=== PATIENT | male | born 1985 | race Hispanic/Latino ===

== ENCOUNTER 2017-02-17 08:53 | Emergency (ER) | payer BC ==
--- NOTE | 2017-02-17 09:40 | Cat Scan Report ---
CT scan of head without IV contrast: History: Near syncope. Findings: Ventricles are normal in size and midline in location. No evidence of acute ischemia, hemorrhage or mass. No extra axial fluid collection. Normal brainstem and cerebellum. Normal mastoid air cells. Large retention cyst measuring 2.5 cm in diameter right maxillary sinus. Impression: No acute intracranial abnormality. Retention cyst right maxillary sinus.
[2017-02-17 09:49] LABS: Anion Gap 18 mmol/L; BUN/Creatinine Ratio 18.75; Blood Urea Nitrogen 15 mg/dL (9-20); Calcium 9.9 mg/dL (8.4-10.2); Carbon Dioxide 25 mmol/L (22-30); Chloride 98.6 mmol/L (98-107); Glucose 121 mg/dL (75-100); Potassium 3.7 mmol/L (3.6-5.0); Sodium 138 mmol/L (137-145)
[2017-02-17 10:18] LABS: Eosinophils % (Auto) 2.7 % (0.0-4.3); Hematocrit 44.9 % (35.5-45.6); Hemoglobin 15.1 gm/dl (11.8-15.2); Mean Corpuscular HGB Conc 34 % (32-34); Mean Corpuscular Hemoglobin 30 pg (28-32); Mean Corpuscular Volume 91 fl (84-94); Platelet Count 217 K/mm3 (140-440); Red Blood Count 4.96 M/mm3 (3.65-5.03); Red Cell Distribution Width 12.3 % (13.2-15.2)
[2017-02-17 10:19] LABS: INR 0.93 (0.87-1.13); Partial Thromboplastin Time 30.6 Sec. (24.2-36.6)
--- NOTE | 2017-02-17 10:57 | Emergency Department Report ---
ED Neck Pain/Injury HPI - General Chief Complaint: Neuro Symptoms/Deficit Stated Complaint: FACIAL DROOP Time Seen by Provider: 02/17/17 10:26 Mode of arrival: Ambulatory Limitations: No Limitations - History of Present Illness Initial Comments: The patient states that he awoke with difficulty moving the left side of his face. He also noticed a difference in taste with more better sensation on the left side of his tongue towards the middle or the front. He does not report facial numbness. He stated that he felt some inflammation in the left mastoid region or so. All his symptoms are new. Although the patient didn't notice at first, when asked he did agree that he was having some difficulty closing his left eye as well as his right. MD Complaint: other (none of these) -: During the night Place: home Radiation: head (left face) Severity: moderate Consistency: constant Improves With: none Worsens With: none Context: fall Associated Symptoms: none Treatments Prior to Arrival: none - Related Data Previous Rx's Medication Instructions Recorded Last Taken Type Valacyclovir HCl [Valtrex] 1,000 mg PO BID #14 tab 02/17/17 Unknown Rx predniSONE [Deltasone] 40 mg PO QDAY #10 tab 02/17/17 Unknown Rx Allergies Allergy/AdvReac Type Severity Reaction Status Date / Time No Known Allergies Allergy Unverified 02/17/17 09:03 ED Review of Systems ROS: Stated complaint: FACIAL DROOP Other details as noted in HPI Constitutional: denies: chills, fever Eyes: denies: eye pain, eye discharge, vision change ENT: denies: ear pain, throat pain Respiratory: denies: cough, shortness of breath, wheezing Cardiovascular: denies: chest pain, palpitations Endocrine: no symptoms reported Gastrointestinal: denies: abdominal pain, nausea, diarrhea Genitourinary: denies: urgency, dysuria Musculoskeletal: denies: back pain, joint swelling, arthralgia Skin: denies: rash, lesions Neurological: as per HPI, weakness, other. 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 Possible recent exposure to zoster. - Medications Home Medications: Home Medications Medication Instructions Recorded Confirmed Last Taken Type Valacyclovir HCl [Valtrex] 1,000 mg PO BID #14 tab 02/17/17 Unknown Rx predniSONE [Deltasone] 40 mg PO QDAY #10 tab 02/17/17 Unknown Rx ED Physical Exam - General Limitations: No Limitations General appearance: alert, in no apparent distress - Head Head exam: Present: atraumatic, normocephalic - Eye Eye exam: Present: normal appearance, other (slight facial asymmetry) - ENT ENT exam: Present: normal exam, mucous membranes moist, TM's normal bilaterally , other (the mastoid area is not tender nor red) - Neck Neck exam: Present: normal inspection, other (no bruit). Absent: tenderness, meningismus - Respiratory Respiratory exam: Present: normal lung sounds bilaterally. Absent: respiratory distress - Cardiovascular Cardiovascular Exam: Present: regular rate, normal rhythm. Absent: systolic murmur, diastolic murmur, rubs, gallop - GI/Abdominal GI/Abdominal exam: Present: soft, normal bowel sounds. Absent: distended, tenderness, guarding, rebound - Rectal Rectal exam: Present: deferred - Extremities Exam Extremities exam: Present: normal inspection - Back Exam Back exam: Present: normal inspection - Neurological Exam Neurological exam: Present: alert, oriented X3, normal gait, motor sensory deficit, other (no drift). Absent: CN II-XII intact (partial paresis of the left facial peripheral distribution weakness of the orbicularis oculi as well as the labial fold) - Psychiatric Psychiatric exam: Present: normal affect, normal mood - Skin Skin exam: Present: warm, dry, intact, normal color. Absent: rash ED Course Vital Signs 02/17/17 02/17/17 02/17/17 09:00 09:48 09:50 Temperature 97.7 F 97.7 F Pulse Rate 69 Respiratory 15 15 Rate Blood Pressure 136/70 [Right] O2 Sat by Pulse 98 98 Oximetry - Reevaluation(s) Reevaluation #1: Patient's stroke score would be 1. Stroke is not suspected. Signs are reasonably consistent with Zelaya's palsy. CT is negative. Patient would not be a candidate for TPA with this Deficit anyway even if it was central. 02/17/17 10:59 ED Medical Decision Making - Lab Data Result diagrams: 02/17/17 10:03 02/17/17 09:15 - Radiology Data Radiology results: report reviewed interpreted by me: No acute intracranial amount Critical care attestation.: If time is entered above; I have spent that time in minutes in the direct care of this critically ill patient, excluding procedure time. ED Disposition Clinical Impression: Left-sided Zelaya's palsy Disposition: DC-01 TO HOME OR SELFCARE Is pt being admited?: No Does the pt Need Aspirin: No Condition: Stable Instructions: Zelaya Palsy (ED) Additional Instructions: Rx as directed. Recommend follow-up with neurologist. Return if any worsening symptoms or acute change as necessary. Prescriptions: predniSONE [Deltasone] 40 mg PO QDAY #10 tab Valacyclovir HCl [Valtrex] 1,000 mg PO BID #14 tab Referrals: PRIMARY CARE, [Primary Care Provider] - 3-5 Days Time of Disposition: 11:03
[2017-02-17 11:24] VITALS: BP 110/72
== END 2017-02-17 11:25 | disposition home or self-care (01) ==
LOC: ED 08:53
DX: G51.0 Bell's palsy (principal)
CPT/HCPCS: 36415; 70450; 80048; 82962; 84484; 85025; 85610; 85670; 85730; 93005; 93010

== ENCOUNTER 2021-06-27 09:21 | Outpatient (CLI) | payer BC ==
[2021-06-27 10:50] LABS: Alanine Aminotransferase 66 units/L (7-56); Albumin 4.6 g/dL (3.9-5); BUN/Creatinine Ratio 14; Blood Urea Nitrogen 14 mg/dL (9-20); Calcium 9.4 mg/dL (8.4-10.2); HDL Cholesterol 35 mg/dL (40-59); Hemolysis Index 25; LDL Cholesterol,Direct 113 mg/dL (50-130)
[2021-06-27 10:52] LABS: Bilirubin,Urine NEG (Negative); Blood,Urine SM (Negative); Color,Urine Yellow (Yellow); Protein,Urine <15 mg/dL mg/dL (Negative); RBC,Urine < 1.0 /HPF (0.0-6.0); Urobilinogen,Urine < 2.0 mg/dL (<2.0)
[2021-06-27 10:56] LABS: WBC,Urine < 1.0 /HPF (0.0-6.0)
[2021-06-27 11:02] LABS: Basophils % (Auto) 0.9 % (0.0-1.8); Eosinophils # (Auto) 0.1 K/mm3 (0.0-0.4); Eosinophils % (Auto) 1.8 % (0.0-4.3); Hematocrit 44.4 % (35.5-45.6); Hemoglobin 14.8 gm/dl (11.8-15.2); Lymphocytes # (Auto) 2.1 K/mm3 (1.2-5.4); Lymphocytes % (Auto) 45.5 % (13.4-35.0); Mean Corpuscular HGB Conc 33 % (32-34); Mean Corpuscular Volume 92 fl (84-94); Monocytes # (Auto) 0.4 K/mm3 (0.0-0.8); Platelet Count 224 K/mm3 (140-440); Red Blood Count 4.81 M/mm3 (3.65-5.03); Red Cell Distribution Width 12.2 % (13.2-15.2)
--- NOTE | 2021-06-27 14:27 | Ultrasound Report ---
ULTRASOUND SCROTUM INDICATION / CLINICAL INFORMATION: BENIGN NEOPLASM OF UNSPECIFIED TESTIS D29.20. COMPARISON: None available. FINDINGS -- RIGHT: TESTIS: Size = 4.6 x 3.3 x 2.6 cm. - Appearance: No significant abnormality. - Cyst / Mass: None. - Color Doppler Flow: Present. No significant abnormality. EPIDIDYMIS: Multiple mildly complex epididymal head cysts, the largest measuring 1.9 x 2.3 x 2.5, co mmon benign finding. HYDROCELE: Minimal VARICOCELE: None demonstrated. FINDINGS -- LEFT: TESTIS: Size = 4.6 x 2.3 cm. - Appearance: No significant abnormality. - Cyst / Mass: None. - Color Doppler Flow: Present. No significant abnormality. EPIDIDYMIS: Multiple epididymal head cysts, the largest measuring 1.0 x 0.7 x 0.5 cm, common benign finding. HYDROCELE: Minimal VARICOCELE: None demonstrated. ADDITIONAL FINDINGS: None. IMPRESSION: 1. No significant sonographic abnormality. Scribed by: Mercy Burkett RDMS, RVT Scribed: 06/27/2021 9:42 AM I have reviewed the images, agree with this report, and edited this report as needed. Signer Name: Gianni Deleon MD Signed: 06/27/2021 2:23 PM Workstation Name: [email or web address]
[2021-06-30 13:06] LABS: Vitamin D, 25-OH, D2 <4 ng/mL
== END 2021-06-27 09:22 | disposition home or self-care (01) ==
LOC: US 09:21
PROVIDERS: ATTEND Internal Medicine
DX: L72.0 Epidermal cyst (principal); D29.20 Benign neoplasm of unspecified testis; Z00.00 Encounter for general adult medical examination without abnormal findings; E66.9 Obesity, unspecified; R53.83 Other fatigue; I10 Essential (primary) hypertension; E55.9 Vitamin D deficiency, unspecified; N39.0 Urinary tract infection, site not specified
CPT/HCPCS: 36415; 80053; 80061; 81001; 82306; 84443; 85025; 93975

== ENCOUNTER 2021-07-20 08:07 | Day surgery (SDC) | payer BC ==
[~2021-07-20 08:07] MED LIST: ceFAZolin/STERILE WATER 2 GM/20 ML SYRINGE IV NR
[2021-07-20] MEDS ORDERED: LACTATED RINGERS 1,000 ML ONE (08:23)
[2021-07-20] MEDS ORDERED: HYDROmorphone 1 MG/1 ML INJ IV PRN ×2 (09:02→10:00)
--- NOTE | 2021-07-20 09:03 | Anesthesia Day of Surgery ---
Anesthesia Day of Surgery - Day of Surgery Patient Examined: Yes Patient H&P Reviewed: Yes Patient is NPO: Yes
--- NOTE | 2021-07-20 09:04 | Anesthesia Consultation ---
Anesthesia Consult and Med Hx Date of service: 07/20/21 - Airway Anesthetic Teeth Evaluation: Good ROM Head & Neck: Adequate Mental/Hyoid Distance: Adequate Mallampati Class: Class III Intubation Access Assessment: Possibly Difficult - Pre-Operative Health Status ASA Pre-Surgery Classification: ASA2 Proposed Anesthetic Plan: MAC (GA if needed) - Pulmonary Hx Smoking: No Hx Sleep Apnea: No (CALLIE PRE SCREEN HIGH RISK) - Cardiovascular System Hx Hypertension: No - Central Nervous System Hx Neuromuscular Disorder: Yes (Zelaya's Palsy) Hx Psychiatric Problems: No - Gastrointestinal Hx Gastroesophageal Reflux Disease: No - Hematic Hx Anemia: No - Other Systems Hx Cancer: No Hx Obesity: Yes
[2021-07-20] MEDS ORDERED: MIDAZOLAM 2 MG/2 ML INJ ONE (09:28)
[2021-07-20] MEDS ORDERED: propofoL 200 MG/20 ML VIAL IV ONE ×3 (09:29→10:10)
[2021-07-20] MEDS ORDERED: LIDOCAINE MPF (2%) 20 MG/1 ML VIAL 5 ML ONE (09:30)
[2021-07-20] MEDS ORDERED: fentaNYL 100 MCG/2 ML INJ ONE (09:30)
[2021-07-20] MEDS ORDERED: BUPIVACAINE/PF (0.25%) 2.5 MG/ML 30 ML VIAL INFILTRATI ONE ×2 (10:00)
[2021-07-20] MEDS ORDERED: SODIUM CHLORIDE 0.9% IRR 1,500 ML BOTTLE IR ONE (10:00)
[2021-07-20] MEDS ORDERED: ONDANSETRON 4 MG/2 ML INJ IV PRN (10:00)
[2021-07-20] MEDS ORDERED: LACTATED RINGERS 1,000 ML IV SCH (10:00)
--- NOTE | 2021-07-20 10:24 | Short Stay Summary ---
Short Stay Documentation Date of service: 07/20/21 - History H&P: obtained from office - Allergies and Medications Current Medications: Allergies No Known Allergies Allergy (Verified 07/08/21 16:10) Home Medications Medication Instructions Recorded Confirmed Last Taken Type No Known Home Medications [No 07/08/21 07/08/21 Unknown History Reported Home Medications] Active Medications Cefazolin Sodium (Cefazolin/Sterile Water 2 Gm/20 Ml Syringe) 2 gm IV PREOP NR Stop: 07/20/21 20:00 Hydromorphone HCl (Hydromorphone 1 Mg/1 Ml Inj) 0.25 mg IV Q10MIN PRN PRN Reason: Pain, Moderate (4-6) Stop: 07/20/21 20:00 Hydromorphone HCl (Hydromorphone 1 Mg/1 Ml Inj) 0.5 mg IV Q10MIN PRN PRN Reason: Pain , Severe (7-10) Stop: 07/20/21 20:00 Lactated Ringer's (Lactated Ringers) 1,000 mls @ 125 mls/hr IV DIRECT KELLY Last Admin: 07/20/21 08:45 Dose: 125 mls/hr Ondansetron HCl (Ondansetron 4 Mg/2 Ml Inj) 4 mg IV ONCE PRN PRN Reason: Nausea And Vomiting - Brief post op/procedure progress note Date of procedure: 07/20/21 Pre-op diagnosis: voluntary sterilization Post-op diagnosis: same Procedure: bilat vasectomy Anesthesia: MAC Surgeon: ROSA TOWNSEND Estimated blood loss: minimal Condition: stable - Hospital course Hospital course: norco & bactrim on chart - Disposition Condition at discharge: Stable Disposition: 01 HOME / SELF CARE / HOMELESS Short Stay Discharge Plan Follow up with: LOLIS DENNIS MD [Primary Care Provider] - 7 Days
--- NOTE | 2021-07-20 11:47 | Operative Report ---
DATE OF SURGERY: 07/20/2021 PREOPERATIVE DIAGNOSIS: Voluntary sterilization. POSTOPERATIVE DIAGNOSIS: Voluntary sterilization. PROCEDURE: Bilateral vasectomy. SURGEON: Bharathi Navarro MD ANESTHESIA: IV sedation and local. ESTIMATED BLOOD LOSS: Minimal. FLUIDS: Crystalloid. COMPLICATIONS: No complications. INDICATIONS: This 36-year-old gentleman, , two kids, desires vasectomy, discussed with his , they were in agreement, exam was normal. Risks, benefits, complications were explained. The patient agreed to proceed with surgical intervention. DESCRIPTION OF PROCEDURE: The patient was taken to the operative suite, placed in a supine position. After adequate IV sedation, he was prepped and draped in a sterile fashion. Left vas deferens was isolated, 0.25% Marcaine was used to 8 mL, was injected into the skin, 1 cm incision was made with the Bovie. The vas deferens was isolated. A 1-inch segment was clipped and excised and sent for routine pathologic evaluation. 2-0 Vicryl stick tie was used to tie the cut ends. Similar procedure was performed on the right side without difficulty. Adequate hemostasis was achieved. Skin was closed with 3-0 chromic in interrupted fashion. Fluffs and scrotal support was placed. The patient tolerated the procedure well and was taken to Recovery Room. He will go home on Bactrim and [place]. He was informed to consider another form of control for 3 months. He will bring in the office a semen analysis at 6 weeks and 12 weeks. TID: [id number] RECEIPT: [id number] HOLLIE/DANIELLE
[2021-07-20 12:44] VITALS: BP 104/54
--- NOTE | 2021-07-20 13:13 | Post Anesthesia Evaluation ---
- Post Anesthesia Evaluation Patient Participated: Yes Airway Patent: Yes Stable Respiratory Function: Yes Nausea/Vomiting: No Temp > 96.8F: Yes Pain Manageable: Yes Adequeate Hydration: Yes Anesthesia Complications: No Block Receding Appropriately: Not Applicable Patient on Ventilator: No
== END 2021-07-20 12:00 | disposition home or self-care (01) ==
LOC: OR 08:07
PROVIDERS: ATTEND Urology
DX: N46.8 Other male infertility (principal); G43.909 Migraine, unspecified, not intractable, without status migrainosus; E66.9 Obesity, unspecified; Z20.822 Contact with and (suspected) exposure to COVID-19; Z87.442 Personal history of urinary calculi; Z98.890 Other specified postprocedural states; Z68.36 Body mass index [BMI] 36.0-36.9, adult
CPT/HCPCS: 55250; 88302; J0690; J2250; J2704; J3010; J3490; J7120; U0003

== ENCOUNTER 2021-11-16 09:09 | Outpatient (CLI) | payer BC ==
[2021-11-16 12:46] LABS: Bilirubin,Urine NEG (Negative); Blood,Urine NEG (Negative); Color,Urine Yellow (Yellow); Protein,Urine <15 mg/dL mg/dL (Negative); Urobilinogen,Urine < 2.0 mg/dL (<2.0)
[2021-11-16 12:51] LABS: Mucus,Urine 3+ /HPF
[2021-11-16 13:07] LABS: Alanine Aminotransferase 33 units/L (7-56); Albumin 4.5 g/dL (3.9-5)
[2021-11-16 13:18] LABS: Bilirubin,Direct < 0.2 mg/dL (0-0.2)
[2021-11-16 14:36] LABS: Hepatitis B Surface Antigen Non-Reactive (Negative); Hepatitis C Virus Antibody Non-Reactive (NonReactive)
== END 2021-11-16 09:10 | disposition home or self-care (01) ==
LOC: LABHHL 09:09
PROVIDERS: ATTEND Internal Medicine
DX: R73.9 Hyperglycemia, unspecified (principal); R94.5 Abnormal results of liver function studies
CPT/HCPCS: 36415; 80074; 80076; 81001; 83036